=== PATIENT | female | born 1930 | race African-American/Black ===

== ENCOUNTER 2019-12-13 23:51 | Observation (INO) ==
[2019-12-14 00:40] LABS: Basophils # 0.1 10*3/uL (0.0-0.2); Basophils % 0.7 % (0.0-0.8); Eosinophils # 0.2 10*3/uL (0.0-0.87); Eosinophils % 2.6 % (0.00-10.9); Hemoglobin 11.3 GM/DL (12.0-16.0); Immature Granulocytes % 0.6 %; Immature Granulocytes Absolute 0.05 #; Mean Corpuscular HGB Conc 32.3 GM/DL (32-36); Mean Platelet Volume 11.9 FL (9.6-12.0); Monocytes % 9.3 % (1.7-12.7); Neutrophils % 62.8 % (38.7-73.9); Platelet Count 216 T/CUMM (130-400); Red Blood Count 3.57 MC/CUMM (3.8-5.5); Red Cell Distribution Width 14.5 % (9.3-17.3); White Blood Count 8.2 T/CUMM (4-12)
[2019-12-14 01:04] LABS: Troponin I 0.177 NG/ML (0.00-0.045)
[2019-12-14 01:07] LABS: Albumin 3.1 G/DL (3.4-5.0); Bilirubin,Total 0.4 MG/DL (0.2-1.0); Calcium 9.1 MG/DL (8.5-10.1); Total Protein 6.7 G/DL (6.4-8.3)
[2019-12-14] MEDS ORDERED: cefTRIAXone 1,000 MG in SODIUM CHLORIDE 0.9% 100 ML IV STA (01:29)
[2019-12-14] MEDS ORDERED: ENOXAPARIN 30 MG/0.3 ML SYRINGE SUBCUT STA (01:31)
[2019-12-14] MEDS ORDERED: ENOXAPARIN 60 MG/0.6 ML SYRINGE ONE (01:36)
[2019-12-14 01:41] LABS: Apearance,Urine Clear (Clear); Glucose,Urine (UA) Negative (Negative); Ketones,Urine Moderate mg/dL (Negative); Protein,Urine 2+ MG/DL; Urine Color Yellow (Yellow); Urine Specific Gravity 1.015 (1.001-1.035)
[2019-12-14 01:42] LABS: Bilirubin,Urine Negative (Negative); Blood, Urine Trace mg/dL (Negative); Nitrite,Urine Negative (Negative); RBC,Urine 2 /HPF (0-4); Squamous Epithelial Cell,Urine Few /HPF (0-10); Urine Urobilinogen 0.2 EU/DL (0.2-1.0); WBC,Urine <1 /HPF (0-6)
[2019-12-14 01:43] LABS: Bacteria,Urine Trace /HPF (Few)
[2019-12-14] MEDS ORDERED: FUROSEMIDE 100 MG/10 ML VIAL IV STA (01:45)
[2019-12-14] MEDS ORDERED: ACETAMINOPHEN 325 MG TABLET PO PRN (02:08)
[2019-12-14] MEDS ORDERED: ONDANSETRON 4 MG/2 ML VIAL IV PRN (02:08)
[2019-12-14] MEDS ORDERED: FUROSEMIDE 20 MG/2 ML VIAL ONE (02:40)
[2019-12-14 05:31] LABS: Basophils # 0.1 10*3/uL (0.0-0.2); Basophils % 0.7 % (0.0-0.8); Eosinophils % 0.6 % (0.00-10.9); Hematocrit 34.5 VOL% (35.7-47.0); Hemoglobin 10.8 GM/DL (12.0-16.0); Immature Granulocytes % 0.6 %; Immature Granulocytes Absolute 0.04 #; Lymphocytes # 1.4 10*3/uL (1.4-4.0); Lymphocytes % 20.2 % (21.3-54.2); Mean Corpuscular HGB Conc 31.3 GM/DL (32-36); Mean Corpuscular Volume 100.3 FL (87-102); Mean Platelet Volume 12.9 FL (9.6-12.0); Neutrophils % 67.9 % (38.7-73.9); Platelet Count 189 T/CUMM (130-400); Red Blood Count 3.44 MC/CUMM (3.8-5.5); Red Cell Distribution Width 14.7 % (9.3-17.3); White Blood Count 6.8 T/CUMM (4-12)
[2019-12-14 06:02] LABS: Albumin 2.9 G/DL (3.4-5.0); Bilirubin,Total 0.7 MG/DL (0.2-1.0); Calcium 9.3 MG/DL (8.5-10.1); Osmolality,Calculated 289.7 MOS/KG (273-304); Total Protein 6.8 G/DL (6.4-8.3)
[2019-12-14] MEDS ORDERED: FUROSEMIDE 20 MG/2 ML VIAL IM SCH (08:00)
[2019-12-14] MEDS: PANTOPRAZOLE 40 MG VIAL IV SCH (08:37)
[2019-12-14] MEDS ORDERED: FUROSEMIDE 40 MG/4 ML VIAL IV SCH (09:00)
[2019-12-14] MEDS ORDERED: LOPERAMIDE 2 MG CAPSULE PO PRN (09:40)
[2019-12-14] MEDS ORDERED: DOCUSATE SODIUM 100 MG CAPSULE PO PRN (09:40)
[2019-12-14] MEDS ORDERED: diphenhydrAMINE CAP 25 MG CAPSULE PO PRN (09:40)
[2019-12-14] MEDS ORDERED: traMADol 50 MG TABLET PO PRN (09:44)
[2019-12-14] MEDS ORDERED: ALBUTEROL/IPRATROPIUM 3 ML NEB RESP TX ONE (10:14)
[2019-12-14] MEDS: cefTRIAXone 1,000 MG in SYRINGE 1 EACH IV SCH (12:20)
[2019-12-14] MEDS: amLODIPine 5 MG TABLET PO SCH (12:20)
[2019-12-14] MEDS: ALBUTEROL/IPRATROPIUM 3 ML NEB RESP TX SCH ×2 (12:35→20:44)
[2019-12-14] MEDS ORDERED: APIXABAN 5 MG TABLET PO SCH (13:51)
[2019-12-14] MEDS ORDERED: NON-FORMULARY MEDICATION (Omeprazole 20 MG) PO SCH (21:00)
[2019-12-14] MEDS ORDERED: ENOXAPARIN 60 MG/0.6 ML SYRINGE SUBCUT SCH (21:00)
[2019-12-14] MEDS: BENZONATATE 100 MG CAPSULE PO SCH (21:31)
[2019-12-14] MEDS: ASPIRIN EC 81 MG TABLET PO SCH (21:32)
[2019-12-14] MEDS: diphenhydrAMINE CAP 25 MG CAPSULE PO SCH (21:32)
[2019-12-14] MEDS: MELATONIN 3 MG TABLET PO SCH (21:33)
[2019-12-14] MEDS: PENTOXIFYLLINE 400 MG TABLET PO SCH (21:34)
[2019-12-14] MEDS: APIXABAN 5 MG TABLET PO SCH (21:36)
[2019-12-14] MEDS: ACETAMINOPHEN 500 MG TABLET PO SCH (21:36)
[2019-12-14] MEDS: MAGNESIUM CHLORIDE 64 MG TABLET PO SCH (21:37)
[2019-12-15 04:15] LABS: Basophils % 0.6 % (0.0-0.8); Eosinophils # 0.1 10*3/uL (0.0-0.87); Eosinophils % 1.3 % (0.00-10.9); Hematocrit 30.1 VOL% (35.7-47.0); Hemoglobin 9.9 GM/DL (12.0-16.0); Immature Granulocytes % 0.5 %; Immature Granulocytes Absolute 0.03 #; Lymphocytes # 1.6 10*3/uL (1.4-4.0); Lymphocytes % 24.8 % (21.3-54.2); Mean Corpuscular HGB Conc 32.9 GM/DL (32-36); Mean Corpuscular Volume 96.2 FL (87-102); Mean Platelet Volume 12.2 FL (9.6-12.0); Monocytes % 10.3 % (1.7-12.7); Neutrophils % 62.5 % (38.7-73.9); Platelet Count 171 T/CUMM (130-400); Red Blood Count 3.13 MC/CUMM (3.8-5.5); Red Cell Distribution Width 14.6 % (9.3-17.3); White Blood Count 6.2 T/CUMM (4-12)
[2019-12-15 04:43] LABS: Calcium 8.7 MG/DL (8.5-10.1); Osmolality,Calculated 286.1 MOS/KG (273-304)
[2019-12-15] MEDS: ALBUTEROL/IPRATROPIUM 3 ML NEB RESP TX SCH ×3 (07:05→20:22)
[2019-12-15] MEDS: BENZONATATE 100 MG CAPSULE PO SCH ×2 (08:48→21:20)
[2019-12-15] MEDS: MONTELUKAST 10 MG TABLET PO SCH (08:49)
[2019-12-15] MEDS: POTASSIUM CHLORIDE 10 MEQ TABLET PO SCH (08:49)
[2019-12-15] MEDS: COLCHICINE 0.6 MG CAPSULE PO SCH (08:49)
[2019-12-15] MEDS: MEMANTINE 10 MG TABLET PO SCH (08:49)
[2019-12-15] MEDS: MAGNESIUM CHLORIDE 64 MG TABLET PO SCH ×2 (08:49→21:20)
[2019-12-15] MEDS: MEGESTROL 40 MG TABLET PO SCH (08:49)
[2019-12-15] MEDS: FOLIC ACID 1 MG TABLET PO SCH (08:51)
[2019-12-15] MEDS: APIXABAN 5 MG TABLET PO SCH ×2 (08:51→21:19)
[2019-12-15] MEDS: LINACLOTIDE 145 MCG CAPSULE PO SCH (08:52)
[2019-12-15] MEDS: PENTOXIFYLLINE 400 MG TABLET PO SCH ×2 (08:52→21:20)
[2019-12-15] MEDS: amLODIPine 5 MG TABLET PO SCH (08:52)
[2019-12-15] MEDS: PANTOPRAZOLE 40 MG VIAL IV SCH (08:52)
[2019-12-15] MEDS: cefTRIAXone 1,000 MG in SYRINGE 1 EACH IV SCH (10:41)
[2019-12-15] MEDS: ACETAMINOPHEN 500 MG TABLET PO SCH (21:19)
[2019-12-15] MEDS: ASPIRIN EC 81 MG TABLET PO SCH (21:19)
[2019-12-15] MEDS: ATORVASTATIN 40 MG TABLET PO SCH (21:20)
[2019-12-15] MEDS: MELATONIN 3 MG TABLET PO SCH (21:20)
[2019-12-15] MEDS: diphenhydrAMINE CAP 25 MG CAPSULE PO SCH (21:20)
[2019-12-16 04:44] LABS: Basophils # 0.1 10*3/uL (0.0-0.2); Basophils % 0.8 % (0.0-0.8); Eosinophils # 0.2 10*3/uL (0.0-0.87); Eosinophils % 2.6 % (0.00-10.9); Hematocrit 30.2 VOL% (35.7-47.0); Immature Granulocytes % 1.1 %; Immature Granulocytes Absolute 0.07 #; Lymphocytes # 1.6 10*3/uL (1.4-4.0); Lymphocytes % 25.5 % (21.3-54.2); Mean Corpuscular HGB Conc 33.1 GM/DL (32-36); Mean Corpuscular Volume 96.5 FL (87-102); Mean Platelet Volume 12.7 FL (9.6-12.0); Monocytes % 11.7 % (1.7-12.7); Neutrophils % 58.3 % (38.7-73.9); Platelet Count 174 T/CUMM (130-400); Red Blood Count 3.13 MC/CUMM (3.8-5.5); Red Cell Distribution Width 14.7 % (9.3-17.3); White Blood Count 6.4 T/CUMM (4-12)
[2019-12-16 05:22] LABS: Calcium 8.9 MG/DL (8.5-10.1); Osmolality,Calculated 289.1 MOS/KG (273-304)
[2019-12-16] MEDS: ALBUTEROL/IPRATROPIUM 3 ML NEB RESP TX SCH ×3 (07:03→18:59)
[2019-12-16] MEDS ORDERED: MAGNESIUM SULF RIDER 2 GM in PREMIX 1 EACH IV PRN (07:42)
[2019-12-16] MEDS ORDERED: MAGNESIUM SULF RIDER 4 GM in PREMIX 1 EACH IV PRN (07:42)
[2019-12-16] MEDS: LINACLOTIDE 145 MCG CAPSULE PO SCH (08:35)
[2019-12-16] MEDS: BENZONATATE 100 MG CAPSULE PO SCH ×2 (08:36→20:49)
[2019-12-16] MEDS: POTASSIUM CHLORIDE 10 MEQ TABLET PO SCH (08:36)
[2019-12-16] MEDS: APIXABAN 5 MG TABLET PO SCH ×2 (08:36→20:49)
[2019-12-16] MEDS: PENTOXIFYLLINE 400 MG TABLET PO SCH ×2 (08:36→20:50)
[2019-12-16] MEDS: MONTELUKAST 10 MG TABLET PO SCH (08:36)
[2019-12-16] MEDS: MAGNESIUM CHLORIDE 64 MG TABLET PO SCH ×2 (08:36→20:48)
[2019-12-16] MEDS: FOLIC ACID 1 MG TABLET PO SCH (08:36)
[2019-12-16] MEDS: PANTOPRAZOLE 40 MG VIAL IV SCH (08:37)
[2019-12-16] MEDS: COLCHICINE 0.6 MG CAPSULE PO SCH (08:37)
[2019-12-16] MEDS: MEGESTROL 40 MG TABLET PO SCH (08:37)
[2019-12-16] MEDS: MEMANTINE 10 MG TABLET PO SCH (08:37)
[2019-12-16] MEDS: POLYETHYLENE GLYCOL POWDER 17 GM PACK PO SCH (08:37)
[2019-12-16] MEDS: amLODIPine 5 MG TABLET PO SCH (08:37)
[2019-12-16] MEDS: cefTRIAXone 1,000 MG in SYRINGE 1 EACH IV SCH (11:47)
[2019-12-16] MEDS: ACETAMINOPHEN 500 MG TABLET PO SCH (20:49)
[2019-12-16] MEDS: ATORVASTATIN 40 MG TABLET PO SCH (20:49)
[2019-12-16] MEDS: MELATONIN 3 MG TABLET PO SCH (20:49)
[2019-12-16] MEDS: diphenhydrAMINE CAP 25 MG CAPSULE PO SCH (20:49)
[2019-12-16] MEDS: ASPIRIN EC 81 MG TABLET PO SCH (20:50)
[2019-12-17 04:36] LABS: Basophils % 0.6 % (0.0-0.8); Eosinophils # 0.3 10*3/uL (0.0-0.87); Eosinophils % 5.9 % (0.00-10.9); Hematocrit 29.2 VOL% (35.7-47.0); Hemoglobin 9.8 GM/DL (12.0-16.0); Immature Granulocytes % 1.1 %; Immature Granulocytes Absolute 0.06 #; Lymphocytes # 1.8 10*3/uL (1.4-4.0); Lymphocytes % 34.5 % (21.3-54.2); Mean Corpuscular HGB Conc 33.6 GM/DL (32-36); Mean Corpuscular Volume 97.7 FL (87-102); Monocytes % 10.5 % (1.7-12.7); Neutrophils % 47.4 % (38.7-73.9); Platelet Count 181 T/CUMM (130-400); Red Blood Count 2.99 MC/CUMM (3.8-5.5); Red Cell Distribution Width 15.1 % (9.3-17.3); White Blood Count 5.2 T/CUMM (4-12)
[2019-12-17 05:12] LABS: Calcium 9.1 MG/DL (8.5-10.1)
[2019-12-17] MEDS: ALBUTEROL/IPRATROPIUM 3 ML NEB RESP TX SCH (07:06)
[2019-12-17 08:07] VITALS: BP 129/65
[2019-12-17] MEDS ORDERED: LEVOFLOXACIN 500 MG TABLET PO ONE (08:23)
[2019-12-17] MEDS: PANTOPRAZOLE 40 MG VIAL IV SCH (09:38)
[2019-12-17] MEDS: MAGNESIUM CHLORIDE 64 MG TABLET PO SCH (09:38)
[2019-12-17] MEDS: PENTOXIFYLLINE 400 MG TABLET PO SCH (09:38)
[2019-12-17] MEDS: COLCHICINE 0.6 MG CAPSULE PO SCH (09:39)
[2019-12-17] MEDS: POLYETHYLENE GLYCOL POWDER 17 GM PACK PO SCH (09:39)
[2019-12-17] MEDS: MEGESTROL 40 MG TABLET PO SCH (09:40)
[2019-12-17] MEDS: amLODIPine 5 MG TABLET PO SCH (09:40)
[2019-12-17] MEDS: MONTELUKAST 10 MG TABLET PO SCH (09:40)
[2019-12-17] MEDS: FOLIC ACID 1 MG TABLET PO SCH (09:40)
[2019-12-17] MEDS: POTASSIUM CHLORIDE 10 MEQ TABLET PO SCH (09:40)
[2019-12-17] MEDS: APIXABAN 5 MG TABLET PO SCH (09:41)
[2019-12-17] MEDS: MEMANTINE 10 MG TABLET PO SCH (09:41)
[2019-12-17] MEDS: BENZONATATE 100 MG CAPSULE PO SCH (09:41)
[2019-12-17] MEDS: LINACLOTIDE 145 MCG CAPSULE PO SCH (09:42)
== END 2019-12-17 12:27 | disposition home health service (06) ==
LOC: EDUNIT# → EDBD → N.ED 23:51 → N.EDINP 23:51 → N.TELES 12-14 02:33
PROVIDERS: ADMIT Internal Medicine; ATTEND Internal Medicine